=== PATIENT | male | born 1950 | race Caucasian/White ===

== ENCOUNTER 2018-08-18 06:05 | Emergency (ER) | payer OTHER, MEDICARE ==
[2018-08-18] MEDS ORDERED: 50% Dextrose in Water 50 ML Syringe ONE (06:15)
--- NOTE | 2018-08-18 06:23 | EDM.PDOC ---
ED HPI GENERAL MEDICAL PROBLEM - General Chief Complaint: Diabetic Complaint Stated Complaint: [facility] Time Seen by Provider: 08/18/18 06:12 Source of Information: Reports: Patient History Limitations: Reports: No Limitations - History of Present Illness INITIAL COMMENTS - FREE TEXT/NARRATIVE: 68-year-old male presents to the ED per [facility]. Patient is an insulin-dependent diabetic for greater than 47 years. His awoke to find him seizureing tonight..When his checked his blood sugar it was only 27. terry cloth cutter hand were summoned and he was given glucose gel per ora and got it up as high as 60. Upon arrival in the ED his blood sugar is only 47. With aspirin given half an chema of D50 as he states he tends to run extremely high for give a full amp. Of note he is started on a new insulin pump within the last couple of weeks and he disagrees with the treatment plan that he has been provided. Believes his pump provides him with NovoLog regular insulin. He has turned off his pump at my request. He has plans to follow-up with his diabetician on Sunday. States he has not been ill in any other way. No fever chills cough sputum production or genitourinary complaints. 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 She states that she believes the symptoms began around 0500 hrs. this morning. He states she was exhibiting moaning and tonic-clonic activity and then more flaccidity. She could not get him to swallow anything as she was going to give him some yogurt. She believes the seizure lasted close to 15 minutes. She has glucagon shots that she would usually give him in the event this occurred but they were not brought from [facility] where they reside. They are here in [place] just visiting for a day or 2. A similar event was about a month ago after his umbilical hernia raphe surgery was done. Sugar was 20 and then as low as 17 and onetime read only low. He therefore is running a bit too low and his insulin requirements appear to be too tight. Onset: Today Onset Date: 08/18/18 Onset Time: 05:30 Duration: Minutes:, Hour(s): Location: Reports: Generalized (Suffered a hypoglycemic reaction with a normalized retinal convulsion.) Quality: Reports: Other Severity: Severe (His urine secondary to hypoglycemic event.) Improves with: Reports: Other (Improved transiently with glucose gel per ora.) Worsens with: Reports: None Context: Reports: Other (Patient is an insulin-dependent diabetic for greater than 47 years. Reports she's been recently started on a new insulin pump's agrees with treatment plan. He states his sugars were running slightly higher yesterday as he wasn't nearly as active as normal. He believes his pump may have overreacted and of course precipitated hypoglycemic event and seizure tonight.). 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 times normal in size and had a TURP performed in July of this year. PSA was as high as 24. No cancer was identified.) - Past Surgical History HEENT Surgical History: Reports: Cataract Surgery, Other (See Below) ( Bilaterally. Fairly has no evidence of diabetic retinopathy) Cardiovascular Surgical History: Reports: Coronary Artery Bypass, Coronary Artery Stent (10.) GI Surgical History: Reports: Other (See Below) (Umbilical hernia raphe 2 weeks ago.) Male Surgical History: Reports: TURP-Transurethral Resection of Prostate (In July of this year. PSA was 24 her was identified.) Social & Family History - Living Situation & Occupation Living situation: Reports: Occupation: Employed Social History Comment: [facility] - Review of Systems Review Of Systems: See Below Constitutional: Reports: Malaise, Weakness, Fatigue. Denies: Fever, Chills HEENT: Reports: No Symptoms Respiratory: Reports: No Symptoms Cardiovascular: Reports: Blood Pressure Problem. Denies: Chest Pain, Claudication, Dyspnea on Exertion, Edema, Lightheadedness, Orthopnea (On medications for hypertension) Endocrine: Reports: Other (Blood sugars run very tight control. On insulin pump. ) GI/Abdominal: Reports: No Symptoms : Reports: Other (Had severe BPH improved with TURP in July of this year.) Musculoskeletal: Reports: Back Pain, Joint Pain Skin: Reports: No Symptoms (Knees hips and neck at times) Neurological: Reports: Other (Denies any diabetic neuropathy.) Psychiatric: Reports: No Symptoms Hematologic/Lymphatic: Reports: No Symptoms Immunologic: Reports: No Symptoms ED EXAM GENERAL NO PERIP PULSE - Physical Exam Exam: See Below Exam Limited By: No Limitations General Appearance: Alert, WD/WN, No Apparent Distress, Other (Alert oriented and gives a useful history with a blood sugar 47. His clothing is completely soaked in diaphoresis.) Eye Exam: Bilateral Eye: Normal Inspection (Has had bilateral cataract extractions and intraocular intraocular lens implants.) Throat/Mouth: Normal Inspection, Normal Lips, Normal Oropharynx, Other Head: Atraumatic (O evidence of tongue biting from seizure activity.), Normocephalic Neck: Normal Inspection, Supple, Non-Tender, Full Range of Motion. No: Carotid Bruit, Lymphadenopathy (L), Lymphadenopathy (R) Respiratory/Chest: No Respiratory Distress, Lungs Clear, Normal Breath Sounds Cardiovascular: Regular Rate, Rhythm, No Edema, No Gallop, No Murmur, No Rub GI/Abdominal: Normal Bowel Sounds, Soft, Non-Tender, No Organomegaly, No Abnormal Bruit, No Mass, Pelvis Stable, Other (Recent umbilical hernia raphe and the umbilicus areas still dark purple in color.) Back Exam: Normal Inspection, Full Range of Motion. No: CVA Tenderness (L), CVA Tenderness (R) Extremities: Normal Inspection, Normal Range of Motion, Non-Tender, No Pedal Edema Neurological: Alert, Oriented, CN II-XII Intact, Normal Cognition Psychiatric: Normal Affect, Normal Mood Skin Exam: Warm, Dry, Intact, Normal Color, No Rash Course - Vital Signs Last Recorded V/S: Last Vital Signs Temp 35.4 C 08/18/18 06:22 Pulse 74 08/18/18 06:22 Resp 18 08/18/18 06:22 BP 125/53 L 08/18/18 06:22 Pulse Ox 89 L 08/18/18 06:22 - Orders/Labs/Meds Labs: Laboratory Tests 08/18/18 08/18/18 Range/Units 06:13 06:38 POC Glucose 47 L 97 (80-115) mg/dL Meds: Medications Discontinued Medications Generic Name Dose Route Start Last Admin Trade Name Juan PRN Reason Stop Dose Admin Dextrose/Water Confirm 08/18/18 06:15 Dextrose 50% In Water Administered 08/18/18 06:16 Dose 50 ml .ROUTE .STK-MED ONE Dextrose/Water 25 ml 08/18/18 06:36 08/18/18 06:20 Dextrose 50% In Water IVPUSH 08/18/18 06:37 25 ml STAT ONE Administration - Radiology Interpretation Free Text/Narrative:: 68-year-old male presents to the ED after experiencing a grand mal seizure while asleep. His awoke to found him seizing at about 0500 hrs. She identified his blood sugar to be 27 at that time. She was unable to get anything into him as he could not swallow. Usually milk for whatever reason 2% is a rescue medicine for him. He finds this does not elevate his blood sugar severely. Paramedics were summoned as the seizure lasted nearly 15 minutes. terry cloth cutter hand arrived and identify blood sugar be 27 as well. He was given glucose orally. His blood sugar up to 60 en route to [facility]. Arrival in the ED has sugar was 47. He therefore received one half amp of D50 percent. Insulin pump was discontinued /shut off. They are in [place], [place] visiting from [place], [place]. - Re-Assessments/Exams Free Text/Narrative Re-Assessment/Exam: 08/18/18 06:51 blood sugar 0645 hrs. is 97. He doesn't wish anything to eat or drink at this time. We'll check his blood sugar in another half an hour and if it's okay he will be discharged as he is well versed in how to care for his diabetes. 08/18/18 07:15 blood sugar dropped down to 70 on last check up. Patient decided that he would order some breakfast. Departure - Departure Time of Disposition: 08:00 Disposition: Home, Self-Care 01 Condition: Fair Clinical Impression: Hypoglycemic insulin reaction in type 1 diabetes mellitus, Seizure, Hypoglycemia - Discharge Information *PRESCRIPTION DRUG MONITORING PROGRAM REVIEWED*: Not Applicable *COPY OF PRESCRIPTION DRUG MONITORING REPORT IN PATIENT BRYCE: Not Applicable Instructions: Type 1 Diabetes Mellitus, Diagnosis, Adult Referrals: PCP,Not In Area [Primary Care Provider] - Forms: ED Department Discharge Additional Instructions: Evaluation the emergency room this morning in regards to development of severe hypoglycemia that precipitated a seizure that lasted close to 15 minutes. Sugar recorded was around 27. You have experienced hypoglycemic seizures in the past according to your on several occasions. Insulin pump appears to possibly providing excess amount of insulin to have precipitated a severe hypoglycemic reaction. Medics gave you glucose orally which brought her sugar up to 60. However was fallen again when you reach the ED it was only 47. You are therefore given half an amp of D50 percent dextrose to bring it up to as high as 97. Just getting something to eat before resuming insulin pump treatment and management. Follow-up with your diabetician on Sunday as planned.
[2018-08-18] MEDS ORDERED: 50% Dextrose in Water 50 ML Syringe IVPUSH ONE (06:36)
== END 2018-08-18 08:13 | disposition home or self-care (01) ==
LOC: JD.ED 06:05
DX: E10.649 Type 1 diabetes mellitus with hypoglycemia without coma (principal); T38.3X5A Adverse effect of insulin and oral hypoglycemic [antidiabetic] drugs, initial encounter; G40.409 Other generalized epilepsy and epileptic syndromes, not intractable, without status epilepticus; I25.10 Atherosclerotic heart disease of native coronary artery without angina pectoris; I11.0 Hypertensive heart disease with heart failure; I50.9 Heart failure, unspecified; I25.2 Old myocardial infarction; Z95.5 Presence of coronary angioplasty implant and graft
CPT/HCPCS: 82962; 96374; 99284; J7060; 99285